=== PATIENT | male | born 1955 | race Caucasian/White ===

== ENCOUNTER 2018-09-30 09:12 | Day surgery (SDC) | payer BC ==
[2018-09-07 09:25] VITALS: BMI 24.2
[2018-09-30] MEDS ORDERED: Benzocaine/Butamben/Tetracai 14-2-2% TOP Spray TOP ONE (11:15)
[2018-09-30] MEDS ORDERED: Flumazenil 0.1 mg/ml Inj (5ml) IVP ONE (12:01)
[2018-09-30] MEDS ORDERED: Midazolam 2 MG/2 ML VIAL ONE (12:01)
[2018-09-30] MEDS ORDERED: Naloxone 0.4 mg/ml Inj (Adult) ONE (12:01)
[2018-09-30] MEDS ORDERED: Midazolam 2 MG/2 ML VIAL IV ONE ×3 (12:02→12:10)
[2018-09-30] MEDS ORDERED: Sodium Chloride 0.9% 1,000 ML IV SCH (12:45)
[2018-09-30 13:38] VITALS: PULSE 65
[2018-09-30 14:16] VITALS: BP 112/68; RESP 18; TEMP 98.3; O2SAT 99
--- NOTE | 2018-09-30 19:21 | CARD ---
APPROVED REPORT Date of service: 09/30/2018 EXAM: Transesophageal echocardiogram with color flow Doppler. INDICATION MR M-Mode DIMENSIONS IVSd1.03 (0.7-1.1cm)LVDd4.83 (4.0-5.6cm) PWd1.16 (0.7-1.1cm)FS (%) 33 % LVDs3.24 (2.0-3.8cm)LVEF (%)61 (>50%) Mitral Valve E/A ratio0.0 TDI E/Lateral E'0.0E/Medial E'0.0 Reason For Test : Evaluate Mitral valve PROCEDURE After obtaining informed consent, patient underwent transesophageal echo in the Echo Lab. Type of Sedation : Conscious Sedation Sedation was administered by Dr. castillo. Sedation was achieved with Versed and , Fentanyl 2.5 mg and 50 mcg intravenously. Transesophageal probe was inserted and advanced into esophagus without difficulty. Echo enhancement indication: R/O Septal defect. The SPRING was performed without complications. Throughout the procedure, the blood pressure, pulse oximetry, cardiac rhythm, and rate were monitored. The patient tolerated the procedure without adverse effects. Recovery from conscious sedation was uneventful and vital signs were stable. LEFT VENTRICLE The left ventricle is normal size. There is borderline to mild concentric left ventricular hypertrophy. The left ventricular function is normal.EF-65% There is normal LV segmental wall motion. The left ventricular diastolic function is normal. No left ventricle thrombus noted on this study. There is no ventricular septal defect visualized. There is no left ventricular aneurysm. There is no mass noted in the left ventricle. RIGHT VENTRICLE The right ventricle is normal size. There is normal right ventricular wall thickness. The right ventricular systolic function is normal. ATRIA The left atrium is mildly dilated. The right atrium is mildly dilated. The interatrial septum is intact with no evidence for an atrial septal defect. AORTIC VALVE The aortic valve is normal in structure. There is Trivial aortic regurgitation. There is no aortic valvular stenosis. There is no aortic valvular vegetation. MITRAL VALVE The mitral valve leaflets are thickened. 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 Mitral regurgitation is severe. TRICUSPID VALVE The tricuspid valve leaflets display thickening. There is trace to mild tricuspid regurgitation. There is no tricuspid valve prolapse or vegetation. There is no tricuspid valve stenosis. PULMONIC VALVE The pulmonary valve is normal in structure. There is trace pulmonic valvular regurgitation. There is no pulmonic valvular stenosis. GREAT VESSELS The aortic root is normal in size. The ascending aorta is normal in size. The pulmonary artery is normal. The IVC is normal in size and collapses >50% with inspiration. PERICARDIAL EFFUSION There is no pericardial effusion. There is no pleural effusion. <Conclusion> The left ventricular function is normal.EF-65% There is Trivial aortic regurgitation. The mitral valve leaflets are thickened. 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 Velocity in HANNA more than 0.4 m/s No significant Plaque in aorta noted. Recommendation: Cardiac cath for pre-op For MVR. Cc; P.MD Mg
--- NOTE | 2018-09-30 22:02 | HP ---
DATE OF EXAM: 09/30/2018 REASON FOR ADMISSION: Preop evaluation for mitral valve surgery. Patient admitted for TE. BRIEF CLINICAL HISTORY: This is a 62-year-old male with no significant past medical history who was complaining of dyspnea on exertion and loud systolic murmur, so the patient was sent for evaluation by Dr. Bala Rice. Patient underwent in office an echocardiogram that shows flail mitral valve leaflet with severe MR. So, patient was admitted today for transesophageal echo to evaluate severity of the mitral regurgitation as well as details of the mitral valve structure. Patient denies any chest pain. He complains of some dyspnea on exertion. PAST MEDICAL HISTORY: Nothing significant. SOCIAL HISTORY: He denies smoking. Denies any history of alcohol abuse. CURRENT MEDICATIONS: Patient is on a multivitamin RN preparation. REVIEW OF SYSTEMS: As per HPI. PHYSICAL EXAMINATION GENERAL: Height of the patient 5 feet 6 inches, weight of the patient 150 pounds, and body mass index 24.2 kg/m2. VITAL SIGNS: Temperature afebrile, heart rate 67, and blood pressure 112/68. HEENT: PERRLA. Extraocular muscles intact. NECK: Supple. No carotid bruits or thyromegaly. CHEST: Clear to auscultation. HEART: A 4/6 systolic murmur radiating into the apex from the back, loud systolic murmur, otherwise heart regular. ABDOMEN: Soft. EXTREMITIES: Clubbing and cyanosis negative. IMPRESSION AND PLAN: A 62-year-old male with no significant past medical history referred for cardiac evaluation because of loud murmur, found to be mitral regurgitation with flail mitral valve leaflet. Patient is 40 today, to assess the severity of the mitral valve as well as the details of mitral valve structure. Further recommendations would be made after the TE, possibility is that the TE also coincides with severe mitral valve flail, mitral valve leaflet. Patient may need surgery and patient may need cardiac catheterization, so decision will be made after TE. The patient is going for TE this afternoon. Irasema Phan MD
== END 2018-09-30 14:30 | disposition home or self-care (01) ==
LOC: TEE 09:12 → EDSEX 09:12 → TEE 14:30
PROVIDERS: ATTEND Internal Medicine Cardiovascular Disease
DX: I34.0 Nonrheumatic mitral (valve) insufficiency (principal); I51.1 Rupture of chordae tendineae, not elsewhere classified; Z68.24 Body mass index [BMI] 24.0-24.9, adult
CPT/HCPCS: 93312; J2250; J3010; J7030

== ENCOUNTER 2018-10-18 06:56 | Day surgery (SDC) | payer BC | END 2018-10-18 16:00 | disposition home or self-care (01) | LOC: CATH 06:56 ==